=== PATIENT | female | born 1965 | race Caucasian/White ===

== ENCOUNTER 2016-11-19 13:51 | Observation (INO) | payer BC ==
[2016-11-10 13:52] LABS: HEMATOCRIT 39.6 % (36.0-48.0); HEMOGLOBIN 13.5 g/dL (12.0-16.0)
--- NOTE | ~2016-11-19 | PREOPHP ---
PreOp History and Physical [address] [place]. [address] NAME: ISABELLA PAZ : 67 STATUS : ADM IN [facility] [id number] AGE: 51 ADM/REG DATE : 11/19/16 MR#: [id number] REPORT SERV DATE: 11/20/16 DICTATED BY: EVANGELISTA SPAIN DATE: 11/20/16 REPORT STATUS : Draft TRANSCRIBED BY: JACKIE DATE: 11/20/16 CHIEF COMPLAINT: Neck pain and upper extremity pain. HISTORY OF PRESENT ILLNESS: The patient is a 51-year-old female with intractable neck and upper extremity pain with progressively worsening signs of cervical myelopathy from severe spinal cord compression. After discussion of risks and benefits, the patient elects to proceed with surgery. REVIEW OF SYSTEMS: The patient denies chest pain, shortness of breath, and bowel or bladder changes. HOME MEDICATIONS: Neurontin, Percocet, Wellbutrin. ALLERGIES: PENICILLIN CAUSES A RASH. FAMILY HISTORY: Noncontributory. PAST MEDICAL HISTORY: Otherwise negative. PHYSICAL EXAMINATION: GENERAL: The patient was healthy appearing, no acute distress. PSYCH: Alert and oriented x3. Normal mood and affect. Gait was within normal limits. SPINE: Decreased cervical range of motion. HEART: Regular rate and rhythm. LUNGS: Clear to auscultation. ABDOMEN: Soft, nontender, nondistended with good bowel sounds. BREASTS: Deferred. RECTUM: Deferred. NEUROLOGIC: Strength was within normal limits. IMAGING: I have reviewed the MRI scan that did show C4 through C7 severe disc disease and stenosis with spinal cord and nerve root compression. ASSESSMENT: Cervical disc disease and stenosis with spinal cord compression with progressive signs of cervical myelopathy. PLAN: The patient presents for surgical intervention. Consent was obtained. All questions were answered. She is ready to proceed with surgery. MADHURI/JACKIE Evangelista Spain, / [id number] PreOp History and Physical [address] [place]. [address] NAME: ISABELLA PAZ : 67 STATUS : ADM IN PAT#: [id number] AGE: 51 ADM/REG DATE : 11/19/16 MR#: [id number] REPORT SERV DATE: 11/20/16 DICTATED BY: EVANGELISTA SPAIN DATE: 11/20/16 REPORT STATUS : Draft TRANSCRIBED BY: MODL DATE: 11/20/16 CC: Evangelista Spain,
--- NOTE | ~2016-11-19 | OP ---
Record Of Operation [facility] [address] [place]. 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 Ossification of posterior longitudinal ligament. SURGEON: Evangelista Spain DO. ANESTHESIA: General. ESTIMATED BLOOD LOSS: 30 mL. COMPLICATIONS: None. PROCEDURES: 1. Anterior cervical diskectomy and fusion, C4-5, C5-6, C6-7. 2. Placement of Medtronic PEEK interbody spacer, C4-5, C5-6, C6-7. 3. Placement of anterior cervical plate from [employer]tronic, C4 through C7. 4. Allograft bone matrix and Neuromonitoring. 5. Operative microscope. INDICATIONS: The patient is a pleasant 51-year-old with progressive signs of cervical myelopathy. She has failed multiple attempts at conservative treatment. After discussion of risks and benefits and continued progressive neurologic changes, the patient elected to proceed with surgical intervention. DESCRIPTION OF PROCEDURE: I identified the patient in the holding area. Consent was obtained. Went to the operating room. Underwent general anesthesia with endotracheal intubation. Prepped and draped in the usual sterile fashion. Operative safety pause was performed, and we proceeded with surgery. An oblique incision was made over the left side of the neck taken down through the platysma, dissection was carried out down to the anterior aspect of the spine. Longus colli was elevated. Self-retaining retractors were placed. A Shiloh pin was placed and the operative level was verified with lateral fluoroscopic image. Pins were placed at C4 and C5. Distraction was applied. Operative microscope was brought in. A knife was used to perform an annulotomy. Free disk material was removed with the pituitary. Anterior osteophytes were removed with a Kerrison. Posterior osteophytes and uncinate processes were taken down with a alfred beatriz. Foraminotomies performed with a Kerrison. There was ossification of the posterior longitudinal ligament causing severe central stenosis with severe spinal cord compression that was gently removed with combination of pituitary, nerve hook, and Kerrison. Endplates were prepared with curettes, rasp, and a cutting beatriz. Trial spacers were implanted, then a Medtronic PEEK interbody spacer with allograft bone matrix was placed at the C4-C5 level. This was repeated again at Record Of Operation [address] [address] NAME: ISABELLA PAZ : 67 STATUS : ADM IN PAT#: [id number] AGE: 51 ADM/REG DATE : 11/19/16 MR#: [id number] REPORT SERV DATE: 11/20/16 DICTATED BY: EVANGELISTA SPAIN DATE: 11/20/16 REPORT STATUS : Draft TRANSCRIBED BY: MODL DATE: 11/20/16 C5-6 and at C6-C7. Shiloh pins were removed. Anterior cervical plate was placed from C4 through C7. Screws were placed and final tightened. Final AP and lateral images were obtained. Irrigation was performed. Hemostasis was achieved. Subplatysmal drain was placed. Layered closure was performed. Sterile dressings were applied. The patient was awoken, extubated, and taken to the recovery room in stable condition. OPERATIVE FINDINGS: Severe stenosis with ossification of the posterior longitudinal ligament causing severe spinal cord compression. There were intermittent SSEP changes. No changes in motor-evoked potentials and no sustained changes. MADHURI/JACKIE Evangelista Spain DO / [id number] CC: Evangelista Spain DO
[~2016-11-19 13:51] MED LIST: DEPO-TESTOSTERONE IM; KLONO5 PO; NEUR100 PO; NORCO1 TA2 PO; ULTRAM50 PO; WELL100 PO
[2016-11-20 05:35] LABS: POTASSIUM, SERUM 3.9 MMOL/L (3.5-5.3)
[2016-11-21] MEDS ORDERED: PCET PO (10:56)
[2016-11-21] MEDS ORDERED: FLEX PO (10:57)
== END 2016-11-21 13:40 | disposition home or self-care (01) ==
LOC: SDC 13:51 → 3SO 20:42
PROVIDERS: Orthopaedic Surgery
PROC: 0RG20A0 Fusion of 2 or more Cervical Vertebral Joints with Interbody Fusion Device, Anterior Approach, Anterior Column, Open Approach (ICD-10-PCS; principal; 2016-11-19 15:45)
DX: M47.812 Spondylosis without myelopathy or radiculopathy, cervical region (principal); M48.02 Spinal stenosis, cervical region
CPT/HCPCS: 76000; 80051; 82962; 85014; 85018; 87641; 88304; 88305; 88307; 88311; 93005; 96374; 96376; 97116-GP; 97161-GP; A9270-GY; C1713; G0378; J0330; J0690; J2250; J2270; J2405; J3010